=== PATIENT | female | born 1970 | race Caucasian/White ===

== ENCOUNTER 2017-11-17 15:12 | Inpatient (IN) | payer MEDICAID ==
[~2017-11-17] VITALS: Ht 160 cm; Wt 69.9 kg
[2017-11-17 15:24] VITALS: Ht 160 cm; Wt 69.9 kg
[2017-11-17 18:16] LABS: microscopic required? YES; urine erythrocyte NEGATIVE (NEGATIVE)
[2017-11-17 18:42] LABS: BASOPHIL % 0.7 % (0-2)
[2017-11-17 18:45] LABS: PLATELET COUNT 469 x10^3mcL (130-400); RED CELL DISTRIBUTION WIDTH 17.3 % (11.5-14.5)
[2017-11-17 19:08] LABS: ALBUMIN 3.7 g/dL (3.4-5.0); ALKALINE PHOSPHATASE 119 U/L (46-116); ALT/SGPT 23 U/L (14-59); AMYLASE 42 U/L (25-115); AST/SGOT 20 U/L (15-37); BILIRUBIN TOTAL 0.2 mg/dL (0.20-1.00); CARBON DIOXIDE 26.5 mmol/L (21-32); CHLORIDE SERUM 95 mmol/L (98-107); CREATININE SERUM 0.6 mg/dL (0.6-1.0); GFR1 > 60 mL/min; GLUCOSE SERUM 92 mg/dL (74-106); LIPASE 93 IU/L (73-393); SODIUM SERUM 132 mmol/L (136-145); T4(THYROXINE) 7.9 ug/dL (4.7-13.3); TOTAL PROTEIN, SERUM 7.6 g/dL (6.4-8.2)
[2017-11-17 19:11] LABS: CHOLESTEROL 203 mg/dL (<200); HDL CHOLESTEROL 98 mg/dL (40-60)
[2017-11-17 19:13] LABS: POTASSIUM SERUM 2.8 mmol/L (3.5-5.1)
[2017-11-17 19:43] LABS: AMPHETAMINE QUAL UR NONE DETECTED (NEG <=1000)
[2017-11-18] MEDS ORDERED: ESCITALOPRAM10 M1 PO (00:09)
[2017-11-18] MEDS ORDERED: IBUPROFEN400 MG PO (00:09)
[2017-11-18] MEDS ORDERED: ROBAXIN500 MG PO ×2 (00:10→00:11)
[2017-11-18] MEDS ORDERED: CYMBALTA20 M1 PO (00:11)
[2017-11-18] MEDS ORDERED: OMEPRAZOLE40 M1 PO (00:12)
[2017-11-18] MEDS ORDERED: COLACE100 MG PO (00:12)
[2017-11-18] MEDS ORDERED: NOR10T PO (00:13)
[2017-11-18] MEDS ORDERED: HYDROXYZINE HYD25 MG PO (00:13)
[2017-11-18] MEDS ORDERED: DIETHYLPROPION PO (00:14)
[2017-11-18] MEDS ORDERED: HYDROCHLOROTHIA25 MG PO (00:14)
[2017-11-18] MEDS ORDERED: ADVAIR DISKUS 51 AER INH (00:15)
[2017-11-18 00:49] VITALS: BP 137/90
[2017-11-18 01:59] LABS: MAGNESIUM 2.3 mg/dL (1.8-2.4); PHOSPHOROUS 3.7 mg/dL (2.5-4.9)
[2017-11-18] MEDS ORDERED: ATROVENT H0.017 MG/1 IH (02:54)
[2017-11-18] MEDS ORDERED: VENTOLIN H0.09 MG/A1 IH (02:56)
[2017-11-18 05:27] VITALS: BP 137/88
[2017-11-18 06:24] LABS: BASOPHIL % 0.4 % (0-2)
[2017-11-18 06:35] LABS: PLATELET COUNT 409 x10^3mcL (130-400); RED CELL DISTRIBUTION WIDTH 17.1 % (11.5-14.5)
[2017-11-18 07:00] LABS: CALCIUM 8.4 mg/dL (8.5-10.1); CARBON DIOXIDE 23.3 mmol/L (21-32); CHLORIDE SERUM 98 mmol/L (98-107); CREATININE SERUM 0.5 mg/dL (0.6-1.0); GFR1 > 60 mL/min; GLUCOSE SERUM 90 mg/dL (74-106); MAGNESIUM 2.2 mg/dL (1.8-2.4); POTASSIUM SERUM 3.1 mmol/L (3.5-5.1); SODIUM SERUM 132 mmol/L (136-145)
[2017-11-18 08:15] LABS: rbc morphology (normal/abnorm) ABNORMAL (NORMAL)
[2017-11-18 10:01] VITALS: BP 125/82
[2017-11-18 15:19] VITALS: BP 118/73
[2017-11-18 18:23] VITALS: BP 125/77
[2017-11-18 20:53] VITALS: BP 119/76
[2017-11-19 05:39] VITALS: BP 117/70
[2017-11-19 07:51] LABS: BASOPHIL % 0.2 % (0-2)
[2017-11-19 07:53] LABS: CALCIUM 8.7 mg/dL (8.5-10.1); CARBON DIOXIDE 24.2 mmol/L (21-32); CHLORIDE SERUM 104 mmol/L (98-107); CREATININE SERUM 0.5 mg/dL (0.6-1.0); GFR1 > 60 mL/min; GLUCOSE SERUM 94 mg/dL (74-106); MAGNESIUM 2.5 mg/dL (1.8-2.4); PHOSPHOROUS 3.5 mg/dL (2.5-4.9); PLATELET COUNT 401 x10^3mcL (130-400); POTASSIUM SERUM 3.5 mmol/L (3.5-5.1); RED CELL DISTRIBUTION WIDTH 16.4 % (11.5-14.5); SODIUM SERUM 136 mmol/L (136-145); rbc morphology (normal/abnorm) ABNORMAL (NORMAL)
[2017-11-19 10:42] VITALS: BP 121/78
[2017-11-19 14:17] VITALS: BP 122/81
[2017-11-19] MEDS ORDERED: CARAFATE1 GM PO (14:57)
[2017-11-19] MEDS ORDERED: NORCO1 TA2 PO (14:59)
[2017-11-19 15:13] VITALS: BP 122/81
[2017-11-19] MEDS ORDERED: BD LACTINEX1.4 MG PO (15:18)
[2017-11-19] MEDS ORDERED: KEFLEX500 M1 PO (15:18)
[2017-11-19] MEDS ORDERED: OMEPRAZOLE40 M1 PO (15:19)
== END 2017-11-19 16:37 | disposition home or self-care (01) | DRG 241 ==
LOC: ED 15:12 → DU 23:54
PROVIDERS: Emergency Medicine; Family Medicine; Internal Medicine Gastroenterology
PROC: 0DB68ZX Excision of Stomach, Via Natural or Artificial Opening Endoscopic, Diagnostic (ICD-10-PCS; principal; 2017-11-18 10:30)
DX: K28.7 Chronic gastrojejunal ulcer without hemorrhage or perforation (principal); E87.1 Hypo-osmolality and hyponatremia; I10 Essential (primary) hypertension; T39.395A Adverse effect of other nonsteroidal anti-inflammatory drugs [NSAID], initial encounter; N39.0 Urinary tract infection, site not specified; E87.6 Hypokalemia; K43.9 Ventral hernia without obstruction or gangrene; K21.9 Gastro-esophageal reflux disease without esophagitis; M19.012 Primary osteoarthritis, left shoulder; M50.322 Other cervical disc degeneration at C5-C6 level; M50.323 Other cervical disc degeneration at C6-C7 level; K59.00 Constipation, unspecified; F32.9 Major depressive disorder, single episode, unspecified; L40.9 Psoriasis, unspecified; E78.5 Hyperlipidemia, unspecified; G47.33 Obstructive sleep apnea (adult) (pediatric); Z68.27 Body mass index [BMI] 27.0-27.9, adult; Z98.84 Bariatric surgery status; Z22.322 Carrier or suspected carrier of Methicillin resistant Staphylococcus aureus; Y92.009 Unspecified place in unspecified non-institutional (private) residence as the place of occurrence of the external cause
CPT/HCPCS: 43235; 83880; 94150; J0696; J1200; J1610; J2060; J2250; J2310; J2405; J2765; J3010; J3480; J3490; J7030; J7620; Q0092; Q9963; Q9967

== ENCOUNTER 2018-11-21 19:58 | Emergency (ER) | payer OTHER, MEDICAID ==
[~2018-11-21] VITALS: Ht 160 cm; Wt 71.2 kg
[~2018-11-21 19:58] MED LIST: ADVAIR DISKUS 51 AER INH; ATROVENT H0.017 MG/1 IH; BD LACTINEX1.4 MG PO; CARAFATE1 GM PO; COLACE100 MG PO; CYMBALTA20 M1 PO; DIETHYLPROPION PO; ESCITALOPRAM10 M1 PO; HYDROCHLOROTHIA25 MG PO; HYDROXYZINE HYD25 MG PO; IBUPROFEN400 MG PO; KEFLEX500 M1 PO; NOR10T PO; NORCO1 TA2 PO; OMEPRAZOLE40 M1 PO; ROBAXIN500 MG PO; VENTOLIN H0.09 MG/A1 IH
[2018-11-21 20:04] VITALS: Ht 160 cm; Wt 71.2 kg
[2018-11-21 22:38] VITALS: BP 120/74
== END 2018-11-21 22:38 | disposition home or self-care (01) ==
LOC: ED 19:58
DX: G89.29 Other chronic pain (principal); M54.5 Low back pain
CPT/HCPCS: J1885